=== PATIENT | male | born 1955 | race Caucasian/White ===

== ENCOUNTER 2018-06-24 16:45 | Inpatient (IN) | payer BC, SELFPAY ==
[2018-06-24 16:55] VITALS: BP 147/88; PULSE 54; RESP 18; TEMP 36; O2SAT 94
[2018-06-24 17:31] VITALS: BMI 42.2
[2018-06-24 17:40] VITALS: BMI 42.2
[2018-06-24] MEDS: Senna/Docusate Sodium 1 Tablet 2 TABLET PO (19:19)
--- NOTE | 2018-06-24 20:49 | PCM.HP.STD ---
Problem List (1) Lumbar spinal stenosis Status: Chronic (2) DVT (deep venous thrombosis) Status: Chronic (3) Hypertension Status: Chronic (4) Morbid obesity Status: Chronic (5) Obstructive sleep apnea Status: Chronic History of Present Illness Date of Admission: 06/24/18 Chief Complaint: Here for rehabilitation, strengthening, prior to discharge home with spouse. The patient is a 62 year old Male with below past medical history hospitalized for low back pain at [facility]. 06/19/2018 Patient underwent decompression L2 - S1 with Dr. Bernardo Andino. Post-operative course unremarkable. 06/24/2018 Admit to TCU with debility, here for rehabilitation, strengthening, prior to discharge home with spouse. Past Medical History Past Medical History (Chronic Problems): Chronic Problems Lumbar spinal stenosis (Chronic) DVT (deep venous thrombosis) (Chronic) Hypertension (Chronic) Morbid obesity (Chronic) Obstructive sleep apnea (Chronic) Allergies Penicillins Allergy (Verified 06/24/18 17:25) Swelling Home Medications: Ambulatory Orders Medication Instructions Recorded Cyclobenzaprine [Flexeril] 10 mg PO TID PRN PRN 06/24/18 Lisinopril [Zestril] 10 mg PO DAILY 06/24/18 Oxycodone HCl/Acetaminophen 1 - 2 tablet PO Q4H PRN PRN 06/24/18 [Percocet 5/325] Rivaroxaban [Xarelto] 20 mg PO DAILY 06/24/18 Surgical History: appendectomy - 1973., herniorrhaphy - Umbilical x 2., - - Back Surgery x 2, 2001; cochlear implant right x 2, Hammertoe left with implant, knee surgery left 2013; Nose surgery history, bilateral carpal tunnel surgery. Psychiatric History: No pertinent psych hx Lives: Spouse/ Significant Other Smoking Status: Never smoker Tobacco Use: Non-smoker Alcohol: None Drugs: None - *Family History Maternal History Items: Cancer - Breast, mets to bone. Paternal History Items: Cancer - Throat, Lung. Review of Systems Constitutional: Denies: Chills, Fever, Weight Change HEENT: Denies: Head Aches, Sinus Congestion, Sinus Drainage Cardiovascular: Denies: Chest Pain, Palpitations Respiratory: Denies: Cough, Shortness of breath at rest, Sputum production Gastrointestinal: Denies: Abdominal Pain, Nausea, Vomiting Genitourinary: Denies: Dysuria Musculoskeletal: Denies: Joint Pain, Joint Tenderness Skin: Denies: Rash, Wounds Neurological: Denies: Numbness, Tingling, Focal weakness Psychiatric: Denies: Anxiety, Depression, Homicidal Ideations, Suicidal Ideations Hematologic/ Lymphatic: Denies: Easy Bruising, Easy Bleeding VTE Information - Inpt Only VTE Present on Admission: No VTE Mechan Device Prophylaxis: Knee High IRIS Hose VTE Pharm Prophylaxis ordered?: No Reason prophylaxis not ordered:: Treatment Not Indicated - Physical Exam General: Alert, Oriented x3, Cooperative HEENT: Atraumatic, PERRLA, EOMI, Normocephalic Neck: Supple, No JVD, Negative Carotid Bruits Lungs: Clear to auscultation, Normal air movement Cardiovascular: Regular rate, No murmurs Abdomen: Bowel Sounds Present, Soft, Non Tender Extremities: No edema, Capillary Refill Less than 3 Seconds Skin: No rashes, No breakdown, Incision - Low back, clean, dry, sutures intact. Musculoskeletal: No Tenderness to Palpation of Joints or Extremities Neurological: Cranial nerves II-XII grossly intact Psych/Mental Status: Normal Affect, Appropriate Vital Signs Temp Pulse Resp BP Pulse Ox 96.8 F L 54 L 18 147/88 H 94 06/24/18 16:55 06/24/18 16:55 06/24/18 16:55 06/24/18 16:55 06/24/18 16:55 Oxygen Delivery Method Room Air Weight: 149.2 kg Body Mass Index (BMI) 42.2 Assessment/Plan 62 year old male with below past medical history hospitalized for decompression L2 - S1 06/19/[address] Bernardo Andino, admitted to TCU with debility, here for rehabilitation, strengthening, prior to discharge home with spouse. Debility - PT/OT. Pain - Tylenol 1000MG Q8H PRN mild pain, Oxycodone 10MG Q4H PRN severe pain. Bowel - Miralax 17GM daily, Senna/colace 2 tablets BID, Dulcolax 10MG PO daily PRN. Adult immunization - Flushot given, too young for Prevnar 13 and Pneumovax 23. DVT prophylaxis - Not necessary, already on Xarelto 20MG daily. Muscle spasm - Flexeril 10MG TID PRN. Hypertension - Lisinopril 10MG daily. Recurrent DVT - Xarelto 20MG daily.
--- NOTE | 2018-06-24 20:54 | HP.PCM_ITS ---
Problem List (1) Lumbar spinal stenosis Status: Chronic (2) DVT (deep venous thrombosis) Status: Chronic (3) Hypertension Status: Chronic (4) Morbid obesity Status: Chronic (5) Obstructive sleep apnea Status: Chronic History of Present Illness Date of Admission: 06/24/18 Chief Complaint: Here for rehabilitation, strengthening, prior to discharge home with spouse. The patient is a 62 year old Male with below past medical history hospitalized for low back pain at [facility]. 06/19/2018 Patient underwent decompression L2 - S1 with Dr. Bernardo Andino. Post- operative course unremarkable. 06/24/2018 Admit to TCU with debility, here for rehabilitation, strengthening, prior to discharge home with spouse. Past Medical History Past Medical History (Chronic Problems): Chronic Problems Lumbar spinal stenosis (Chronic) DVT (deep venous thrombosis) (Chronic) Hypertension (Chronic) Morbid obesity (Chronic) Obstructive sleep apnea (Chronic) Allergies Penicillins Allergy (Verified 06/24/18 17:25) Swelling Home Medications: Ambulatory Orders Medication Instructions Recorded Cyclobenzaprine [Flexeril] 10 mg PO TID PRN PRN 06/24/18 Lisinopril [Zestril] 10 mg PO DAILY 06/24/18 Oxycodone HCl/Acetaminophen 1 - 2 tablet PO Q4H PRN PRN 06/24/18 [Percocet 5/325] Rivaroxaban [Xarelto] 20 mg PO DAILY 06/24/18 Surgical History: appendectomy - 1973., herniorrhaphy - Umbilical x 2., - - Back Surgery x 2, 2001; cochlear implant right x 2, Hammertoe left with implant, knee surgery left 2013; Nose surgery history, bilateral carpal tunnel surgery. Psychiatric History: No pertinent psych hx Lives: Spouse/ Significant Other Smoking Status: Never smoker Tobacco Use: Non-smoker Alcohol: None Drugs: None - *Family History Maternal History Items: Cancer - Breast, mets to bone. Paternal History Items: Cancer - Throat, Lung. Review of Systems Constitutional: Denies: Chills, Fever, Weight Change HEENT: Denies: Head Aches, Sinus Congestion, Sinus Drainage Cardiovascular: Denies: Chest Pain, Palpitations Respiratory: Denies: Cough, Shortness of breath at rest, Sputum production Gastrointestinal: Denies: Abdominal Pain, Nausea, Vomiting Genitourinary: Denies: Dysuria Musculoskeletal: Denies: Joint Pain, Joint Tenderness Skin: Denies: Rash, Wounds Neurological: Denies: Numbness, Tingling, Focal weakness Psychiatric: Denies: Anxiety, Depression, Homicidal Ideations, Suicidal Ideations Hematologic/ Lymphatic: Denies: Easy Bruising, Easy Bleeding VTE Information - Inpt Only VTE Present on Admission: No VTE Mechan Device Prophylaxis: Knee High IRIS Hose VTE Pharm Prophylaxis ordered?: No Reason prophylaxis not ordered:: Treatment Not Indicated - Physical Exam General: Alert, Oriented x3, Cooperative HEENT: Atraumatic, PERRLA, EOMI, Normocephalic Neck: Supple, No JVD, Negative Carotid Bruits Lungs: Clear to auscultation, Normal air movement Cardiovascular: Regular rate, No murmurs Abdomen: Bowel Sounds Present, Soft, Non Tender Extremities: No edema, Capillary Refill Less than 3 Seconds Skin: No rashes, No breakdown, Incision - Low back, clean, dry, sutures intact. Musculoskeletal: No Tenderness to Palpation of Joints or Extremities Neurological: Cranial nerves II-XII grossly intact Psych/Mental Status: Normal Affect, Appropriate Vital Signs Temp Pulse Resp BP Pulse Ox 96.8 F L 54 L 18 147/88 H 94 06/24/18 16:55 06/24/18 16:55 06/24/18 16:55 06/24/18 16:55 06/24/18 16:55 Oxygen Delivery Method Room Air Weight: 149.2 kg Body Mass Index (BMI) 42.2 Assessment/Plan 62 year old male with below past medical history hospitalized for decompression L2 - S1 06/19/[address] Bernardo Andino, admitted to TCU with debility, here for rehabilitation, strengthening, prior to discharge home with spouse. * Debility - PT/OT. * Pain - Tylenol 1000MG Q8H PRN mild pain, Oxycodone 10MG Q4H PRN severe pain. * Bowel - Miralax 17GM daily, Senna/colace 2 tablets BID, Dulcolax 10MG PO daily PRN. * Adult immunization - Flushot given, too young for Prevnar 13 and Pneumovax 23. * DVT prophylaxis - Not necessary, already on Xarelto 20MG daily. * Muscle spasm - Flexeril 10MG TID PRN. * Hypertension - Lisinopril 10MG daily. * Recurrent DVT - Xarelto 20MG daily.
[2018-06-25] MEDS: Senna/Docusate Sodium 1 Tablet 2 TABLET PO ×2 (05:42→18:00)
[2018-06-25] MEDS: Lisinopril 10 MG Tablet PO (05:42)
[2018-06-25] MEDS: Polyethylene Glycol 3350 17 GM PACKET PO (05:42)
[2018-06-25 05:43] LABS: Absolute Neutrophil Count 5.1 X10^3/uL (2.0-7.7); Basophil# 0.04 X10^3/uL; Basophil% 0.5 % (0-1); Eosinophil# 0.34 X10^3/uL; Eosinophils% 4.1 % (0-5); Hematocrit 34.4 % (40-54); Hemoglobin 11.5 g/dl (13.0-16.5); Lymphocyte % 18.2 % (19-41); Mean Corp Hgb Conc 33.4 g/gl (32-36); Mean Corpuscular Hgb 28.6 pg (27.0-32.0); Mean Corpuscular Volume 85.6 fL (80-94); Mean Platelet Vol. 11.2 fl (6.2-12.0); Monocyte# 1.17 X10^3/uL; Monocyte% 14.2 % (0-10); Neutrophil # 5.09 X10^3/uL (2.7-7.7); Neutrophil % 61.5 % (47-70); Platelet Count 195 K/mm3 (150-450); RBC Distribution Width CV 14.2 % (11.6-14.6); RBC Distribution Width SD 43.6 fl (35.1-43.9); Red Blood Count 4.02 M/mm3 (4.6-6.2); White Blood Count 8.3 K/mm3 (4.4-11.0)
[2018-06-25 05:46] LABS: POSITIVE COUNT NO; POSITIVE DIFFERENTIAL NO; POSITIVE MORPHOLOGY NO
[2018-06-25 06:05] LABS: Anion Gap 6 (5-15); BUN 21 mg/dL (7-18); BUN/Creat Ratio 19.3 RATIO (10-20); Calcium,Total 9.2 mg/dL (8.5-10.1); Chloride 103 mmol/L (98-107); Creatinine, Serum 1.09 mg/dL (0.70-1.30); EST Glomerular Filtration Rate 73 mL/min (>60); Est Glom Filt Rate - Afr Amer 88 mL/min (>60); Glucose 156 mg/dL (74-106); Potassium 4.6 mmol/L (3.5-5.1); Sodium Level 137 mmol/L (136-145)
[2018-06-25] MEDS: oxyCODONE 5 MG Tablet 10 MG PO ×2 (09:34→15:34)
[2018-06-25] MEDS: Tuberculin,Purif.prot.deriv. 50 TU/ML Vial 5 ML ID (12:07)
--- NOTE | 2018-06-25 12:51 | PCM.PN.RX ---
<Sriram Crews D - Last Filed: 06/25/18 12:51> Progress Note - Pharmacy Subjective: TCU Admission Objective: Allergies Penicillins Allergy (Verified 06/24/18 17:25) Swelling Current Medications Generic Name Dose Route Start Last Admin Trade Name Freq PRN Reason Stop Dose Admin Acetaminophen 1,000 mg 06/24/18 21:05 Tylenol PO Q8H PRN PRN MILD PAIN (1-3/10) Bisacodyl 10 mg 06/24/18 21:05 Dulcolax PO DAILY PRN Constipation Cyclobenzaprine HCl 10 mg 06/24/18 17:13 Flexeril PO TID PRN PRN MUSCLE SPASM Influenza Virus Vaccine Quadrival 0.5 ml 06/30/18 10:00 Fluarix/Fluzone IM 06/30/18 10:01 .ONCE ONE Lisinopril 10 mg 06/25/18 06:00 06/25/18 05:42 Zestril PO 10 mg DAILY JEAN Administration Oxycodone HCl 10 mg 06/24/18 21:06 06/25/18 09:34 Oxyir PO 5 mg Q4H PRN PRN Administration SEVERE PAIN (6-10/10) Polyethylene Glycol 17 gm 06/25/18 06:00 06/25/18 05:42 Miralax PO 17 gm DAILY [facility] Administration Rivaroxaban 20 mg 07/02/18 17:00 Xarelto PO DAILY@1700 [facility] Senna/Docusate Sodium 2 tablet 06/24/18 19:00 06/25/18 05:42 Senokot-S, Katelyn-Colace PO 2 tablet BID [facility] Administration Tuberculin PPD 5 tu 07/02/18 10:00 Tubersol, Aplisol, Ppd ID 07/02/18 10:01 X1 ONE Problem List Lumbar spinal stenosis (Chronic) DVT (deep venous thrombosis) (Chronic) Hypertension (Chronic) Morbid obesity (Chronic) Obstructive sleep apnea (Chronic) Vital Signs Temp Pulse Resp BP Pulse Ox 96.8 F L 54 L 18 147/88 H 94 06/24/18 16:55 06/24/18 16:55 06/24/18 16:55 06/24/18 16:55 06/24/18 16:55 Oxygen Delivery Method Room Air Weight: 149.2 kg Body Mass Index (BMI) 42.2 Sodium 137 mmol/L (136-145) 06/25/18 05:20 Potassium 4.6 mmol/L (3.5-5.1) 06/25/18 05:20 Chloride 103 mmol/L (98-107) 06/25/18 05:20 Carbon Dioxide 28.0 mmol/L (21.0-32.0) 06/25/18 05:20 Anion Gap 6 (5-15) 06/25/18 05:20 BUN 21 mg/dL (7-18) H 06/25/18 05:20 Creatinine 1.09 mg/dL (0.70-1.30) 06/25/18 05:20 Est GFR (MDRD) Af Amer 88 mL/min (>60) 06/25/18 05:20 Est GFR (MDRD) Non-Af 73 mL/min (>60) 06/25/18 05:20 BUN/Creatinine Ratio 19.3 RATIO (10-20) 06/25/18 05:20 Glucose 156 mg/dL (74-106) H 06/25/18 05:20 Assessment/Plan: 1) Pain APAP for mild pain, oxycodone for severe pain, cyclobenzaprine for spasm. Continue to monitor prn medication use, daily pain scores. 2) HTN Lisinopril daily. Continue to monitor BP/HR, renal function, electrolytes. 3) DVT Rivaroxaban daily. Continue to monitor s/s bleeding/clot, renal function. Psychotropic Medications: None Unnecessary Medications: None Bowel Regimen: 4) Senna/s, PEG, prn bisacodyl. Continue to monitor prn medication use, for constipation/diarrhea. Date of Note:: 06/25/18 - Provider Comments Provider responsibility: Provider responsible to enter orders to implement recommendations <Gene Corona Chi - Last Filed: 06/25/18 17:39> Progress Note - Pharmacy Subjective: [] Objective: Allergies Penicillins Allergy (Verified 06/24/18 17:25) Swelling Current Medications Generic Name Dose Route Start Last Admin Trade Name Freq PRN Reason Stop Dose Admin Acetaminophen 1,000 mg 06/24/18 21:05 Tylenol PO Q8H PRN PRN MILD PAIN (1-3/10) Bisacodyl 10 mg 06/24/18 21:05 Dulcolax PO DAILY PRN Constipation Cyclobenzaprine HCl 10 mg 06/24/18 17:13 Flexeril PO TID PRN PRN MUSCLE SPASM Influenza Virus Vaccine Quadrival 0.5 ml 06/30/18 10:00 Fluarix/Fluzone IM 06/30/18 10:01 .ONCE ONE Lisinopril 10 mg 06/25/18 06:00 06/25/18 05:42 Zestril PO 10 mg DAILY JE[facility] Administration Oxycodone HCl 5 - 10 mg 06/25/18 15:39 Oxyir PO Q4H PRN PRN SEVERE PAIN (6-07/01) Polyethylene Glycol 17 gm 06/25/18 06:00 06/25/18 05:42 Miralax PO 17 gm DAILY [facility] Administration Rivaroxaban 20 mg 07/02/18 17:00 Xarelto PO DAILY@1700 [facility] Senna/Docusate Sodium 2 tablet 06/24/18 19:00 06/25/18 05:42 Senokot-S, Katelyn-Colace PO 2 tablet BID JEAN Administration Tuberculin PPD 5 tu 07/02/18 10:00 Tubersol, Aplisol, Ppd ID 07/02/18 10:01 X1 ONE Problem List Lumbar spinal stenosis (Chronic) DVT (deep venous thrombosis) (Chronic) Hypertension (Chronic) Morbid obesity (Chronic) Obstructive sleep apnea (Chronic) Vital Signs Temp Pulse Resp BP Pulse Ox 98.4 F 85 20 H 131/71 H 98 06/25/18 16:00 06/25/18 16:00 06/25/18 16:00 06/25/18 16:00 06/25/18 16:00 Oxygen Delivery Method Room Air Weight: 149.2 kg Body Mass Index (BMI) 42.2 Sodium 137 mmol/L (136-145) 06/25/18 05:20 Potassium 4.6 mmol/L (3.5-5.1) 06/25/18 05:20 Chloride 103 mmol/L (98-107) 06/25/18 05:20 Carbon Dioxide 28.0 mmol/L (21.0-32.0) 06/25/18 05:20 Anion Gap 6 (5-15) 06/25/18 05:20 BUN 21 mg/dL (7-18) H 06/25/18 05:20 Creatinine 1.09 mg/dL (0.70-1.30) 06/25/18 05:20 Est GFR (MDRD) Af Amer 88 mL/min (>60) 06/25/18 05:20 Est GFR (MDRD) Non-Af 73 mL/min (>60) 06/25/18 05:20 BUN/Creatinine Ratio 19.3 RATIO (10-20) 06/25/18 05:20 Glucose 156 mg/dL (74-106) H 06/25/18 05:20 Assessment/Plan: Psychotropic Medications: Unnecessary Medications: Bowel Regimen: - Provider Comments Provider responsibility: Provider responsible to enter orders to implement recommendations Provider Comments to Recommendations by Pharmacy: Agree
--- NOTE | 2018-06-25 12:54 | PHA.CONS_ITS ---
<Sriram Crews D - Last Filed: 06/25/18 12:51> Progress Note - Pharmacy Subjective: TCU Admission Objective: Allergies Penicillins Allergy (Verified 06/24/18 17:25) Swelling Current Medications Generic Name Dose Route Start Last Admin Trade Name Freq PRN Reason Stop Dose Admin Acetaminophen 1,000 mg 06/24/18 21:05 Tylenol PO Q8H PRN PRN MILD PAIN (1-3/10) Bisacodyl 10 mg 06/24/18 21:05 Dulcolax PO DAILY PRN Constipation Cyclobenzaprine HCl 10 mg 06/24/18 17:13 Flexeril PO TID PRN PRN MUSCLE SPASM Influenza Virus Vaccine Quadrival 0.5 ml 06/30/18 10:00 Fluarix/Fluzone IM 06/30/18 10:01 .ONCE ONE Lisinopril 10 mg 06/25/18 06:00 06/25/18 05:42 Zestril PO 10 mg DAILY [facility] Administration Oxycodone HCl 10 mg 06/24/18 21:06 06/25/18 09:34 Oxyir PO 5 mg Q4H PRN PRN Administration SEVERE PAIN (6-10/10) Polyethylene Glycol 17 gm 06/25/18 06:00 06/25/18 05:42 Miralax PO 17 gm DAILY [facility] Administration Rivaroxaban 20 mg 07/02/18 17:00 Xarelto PO DAILY@1700 [facility] Senna/Docusate Sodium 2 tablet 06/24/18 19:00 06/25/18 05:42 Senokot-S, Katelyn-Colace PO 2 tablet BID [facility] Administration Tuberculin PPD 5 tu 07/02/18 10:00 Tubersol, Aplisol, Ppd ID 07/02/18 10:01 X1 ONE Problem List Lumbar spinal stenosis (Chronic) DVT (deep venous thrombosis) (Chronic) Hypertension (Chronic) Morbid obesity (Chronic) Obstructive sleep apnea (Chronic) Vital Signs Temp Pulse Resp BP Pulse Ox 96.8 F L 54 L 18 147/88 H 94 06/24/18 16:55 06/24/18 16:55 06/24/18 16:55 06/24/18 16:55 06/24/18 16:55 Oxygen Delivery Method Room Air Weight: 149.2 kg Body Mass Index (BMI) 42.2 Sodium 137 mmol/L (136-145) 06/25/18 05:20 Potassium 4.6 mmol/L (3.5-5.1) 06/25/18 05:20 Chloride 103 mmol/L (98-107) 06/25/18 05:20 Carbon Dioxide 28.0 mmol/L (21.0-32.0) 06/25/18 05:20 Anion Gap 6 (5-15) 06/25/18 05:20 BUN 21 mg/dL (7-18) H 06/25/18 05:20 Creatinine 1.09 mg/dL (0.70-1.30) 06/25/18 05:20 Est GFR (MDRD) Af Amer 88 mL/min (>60) 06/25/18 05:20 Est GFR (MDRD) Non-Af 73 mL/min (>60) 06/25/18 05:20 BUN/Creatinine Ratio 19.3 RATIO (10-20) 06/25/18 05:20 Glucose 156 mg/dL (74-106) H 06/25/18 05:20 Assessment/Plan: 1) Pain APAP for mild pain, oxycodone for severe pain, cyclobenzaprine for spasm. Continue to monitor prn medication use, daily pain scores. 2) HTN Lisinopril daily. Continue to monitor BP/HR, renal function, electrolytes. 3) DVT Rivaroxaban daily. Continue to monitor s/s bleeding/clot, renal function. Psychotropic Medications: None Unnecessary Medications: None Bowel Regimen: 4) Senna/s, PEG, prn bisacodyl. Continue to monitor prn medication use, for con stipation/diarrhea. Date of Note:: 06/25/18 - Provider Comments Provider responsibility: Provider responsible to enter orders to implement recommendations <Gene Corona Chi - Last Filed: 06/25/18 17:39> Progress Note - Pharmacy Subjective: [] Objective: Allergies Penicillins Allergy (Verified 06/24/18 17:25) Swelling Current Medications Generic Name Dose Route Start Last Admin Trade Name Freq PRN Reason Stop Dose Admin Acetaminophen 1,000 mg 06/24/18 21:05 Tylenol PO Q8H PRN PRN MILD PAIN (1-3/10) Bisacodyl 10 mg 06/24/18 21:05 Dulcolax PO DAILY PRN Constipation Cyclobenzaprine HCl 10 mg 06/24/18 17:13 Flexeril PO TID PRN PRN MUSCLE SPASM Influenza Virus Vaccine Quadrival 0.5 ml 06/30/18 10:00 Fluarix/Fluzone IM 06/30/18 10:01 .ONCE ONE Lisinopril 10 mg 06/25/18 06:00 06/25/18 05:42 Zestril PO 10 mg DAILY [facility] Administration Oxycodone HCl 5 - 10 mg 06/25/18 15:39 Oxyir PO Q4H PRN PRN SEVERE PAIN (6-07/01) Polyethylene Glycol 17 gm 06/25/18 06:00 06/25/18 05:42 Miralax PO 17 gm DAILY [facility] Administration Rivaroxaban 20 mg 07/02/18 17:00 Xarelto PO DAILY@1700 [facility] Senna/Docusate Sodium 2 tablet 06/24/18 19:00 06/25/18 05:42 Senokot-S, Katelyn-Colace PO 2 tablet BID [facility] Administration Tuberculin PPD 5 tu 07/02/18 10:00 Tubersol, Aplisol, Ppd ID 07/02/18 10:01 X1 ONE Problem List Lumbar spinal stenosis (Chronic) DVT (deep venous thrombosis) (Chronic) Hypertension (Chronic) Morbid obesity (Chronic) Obstructive sleep apnea (Chronic) Vital Signs Temp Pulse Resp BP Pulse Ox 98.4 F 85 20 H 131/71 H 98 06/25/18 16:00 06/25/18 16:00 06/25/18 16:00 06/25/18 16:00 06/25/18 16:00 Oxygen Delivery Method Room Air Weight: 149.2 kg Body Mass Index (BMI) 42.2 Sodium 137 mmol/L (136-145) 06/25/18 05:20 Potassium 4.6 mmol/L (3.5-5.1) 06/25/18 05:20 Chloride 103 mmol/L (98-107) 06/25/18 05:20 Carbon Dioxide 28.0 mmol/L (21.0-32.0) 06/25/18 05:20 Anion Gap 6 (5-15) 06/25/18 05:20 BUN 21 mg/dL (7-18) H 06/25/18 05:20 Creatinine 1.09 mg/dL (0.70-1.30) 06/25/18 05:20 Est GFR (MDRD) Af Amer 88 mL/min (>60) 06/25/18 05:20 Est GFR (MDRD) Non-Af 73 mL/min (>60) 06/25/18 05:20 BUN/Creatinine Ratio 19.3 RATIO (10-20) 06/25/18 05:20 Glucose 156 mg/dL (74-106) H 06/25/18 05:20 Assessment/Plan: Psychotropic Medications: Unnecessary Medications: Bowel Regimen: - Provider Comments Provider responsibility: Provider responsible to enter orders to implement recommendations Provider Comments to Recommendations by Pharmacy: Agree
--- NOTE | 2018-06-25 14:12 | CASEMGMT ---
Reviewed and approved social media content manager student admission assessment. Janelle LOPEZ, VEST MAKER
[2018-06-25 16:00] VITALS: BP 131/71; PULSE 85; RESP 20; TEMP 36.9; O2SAT 98
[2018-06-25] MEDS: oxyCODONE 5 MG Tablet PO (20:14)
[2018-06-26] MEDS: Acetaminophen 500 MG Tablet 1000 MG PO ×2 (05:31→17:01)
[2018-06-26] MEDS: Lisinopril 10 MG Tablet PO (05:31)
[2018-06-26] MEDS: Senna/Docusate Sodium 1 Tablet 2 TABLET PO ×2 (05:31→17:05)
[2018-06-26] MEDS: Polyethylene Glycol 3350 17 GM PACKET PO (05:31)
--- NOTE | 2018-06-26 11:47 | CASEMGMT ---
Insurance Clinical update faxed to [employer]. Auth # [id number] JOHN De Leon
--- NOTE | 2018-06-26 12:23 | CHAPLAIN ---
Type of Pastoral Visit _x__ Initial Visit ___ Follow-up Visit ___ On-call Visit ___ General Patient Visit ___ Spiritual Assessment ___ Family Conference ___ Bereavement ___ Rapid Response ___ Code Blue ___ Other (describe below) Pastoral Care Referral From _x__ Patient ___ Family ___ Nurse ___ Physician ___ Cloth Measurer ___ Caseworker ___ Other (describe below) Sacrament/Intervention _x__ Active listening ___ Anointing ___ Zoroastrian ___ Bereavement ___ Communion _x__ Yaa exploration ___ _x__ Life review _x__ Prayer ___ Reconciliation ___ Sacrament of Sick ___ Supportive presence ___ Wedding ___ Other (describe below) Pastoral Comments patient is very welcoming and talkative; pt said he was expecting and looking forward to pedodontist visit; pt is spiritual but not samaritan; pt speaks of his desire for prayer and support for another patient and family in the TCU that he met; pt admits to having moments of depression but finds that family and keeping focus on others is helpful; pt has been limited in 2018 from doing much and is holding on to hope that his situation will improve; prayer receives a prayer and adds a prayer himself
--- NOTE | 2018-06-26 15:13 | CASEMGMT ---
Insurance Continued stay approved through 07/01/18. Auth # [id number] JOHN De Leon
[2018-06-26 15:54] VITALS: BP 143/77; PULSE 80; RESP 14; TEMP 36.8; O2SAT 98
[2018-06-26] MEDS: Bisacodyl 5 MG Tablet 10 MG PO (17:04)
[2018-06-26 21:50] VITALS: PULSE 80; O2SAT 95
[2018-06-27] MEDS: Lisinopril 10 MG Tablet PO (04:59)
[2018-06-27] MEDS: Polyethylene Glycol 3350 17 GM PACKET PO (04:59)
[2018-06-27] MEDS: Senna/Docusate Sodium 1 Tablet 2 TABLET PO ×2 (04:59→17:30)
[2018-06-27 15:49] VITALS: BP 146/73; PULSE 85; RESP 14; TEMP 36.8; O2SAT 97
[2018-06-28] MEDS: Senna/Docusate Sodium 1 Tablet 2 TABLET PO ×2 (05:58→17:49)
[2018-06-28] MEDS: Lisinopril 10 MG Tablet PO (05:58)
[2018-06-28] MEDS: Polyethylene Glycol 3350 17 GM PACKET PO (05:58)
[2018-06-28 05:59] VITALS: BP 137/79; PULSE 79
[2018-06-28] MEDS: Acetaminophen 500 MG Tablet 1000 MG PO ×2 (09:55→19:42)
[2018-06-28 15:44] VITALS: BP 127/75; PULSE 61; RESP 18; TEMP 36.8; O2SAT 96
[2018-06-29] MEDS: Polyethylene Glycol 3350 17 GM PACKET PO (06:22)
[2018-06-29] MEDS: Lisinopril 10 MG Tablet PO (06:22)
[2018-06-29] MEDS: Senna/Docusate Sodium 1 Tablet 2 TABLET PO (06:22)
[2018-06-29] MEDS: Acetaminophen 500 MG Tablet 1000 MG PO ×2 (09:28→19:50)
--- NOTE | 2018-06-29 13:15 | NURSING ---
Addendum entered by Sabina Monae 06/29/18 13:15: Message left and they will return the call. Original Note: Call made to Dr Andino's office about clarification for F/U appt and also suture removal.
--- NOTE | 2018-06-29 14:12 | NURSING ---
KIZZY RIVERO CNP AT DR MURGUIA'S OFFICE CALLED TO CLARIFY F/U APPT AND SUTURE REMOVAL. SENIOR JAVASCRIPT ENGINEER STATES IS OK TO REMOVE SUTURES TODAY D/T BEING 10DAYS S/P SURGERY LONG INCISION IS WELL APPROX W/NO REDNESS,EDEMA ECT.. SENIOR JAVASCRIPT ENGINEER STATES SHE WILL CONTACT PT FAMILY TO SET UP F/U APPT AND INSTRUCT FAMILY TO LET TCU KNOW WHEN APPT IS SCHED FOR. PT NOTIFIED OF THESE PLANS AND IS AGREEABLE TO HAVING SUTURES REMOVED HERE AND F/U SCHED W/HIS FAMILY MEMBER. PT STATES HE'S CONSIDERING LEAVING WED D/T PROGRESS MADE.
--- NOTE | 2018-06-29 14:56 | CASEMGMT ---
Brief interview for mental status (BIMS) and resident mood interview (PHQ-9) completed on this day. BIMS score 14/15. PHQ-9 score 10/18
[2018-06-29 15:30] VITALS: BP 142/84; PULSE 92; RESP 18; TEMP 36.6; O2SAT 95
[2018-06-30] MEDS: Polyethylene Glycol 3350 17 GM PACKET PO (05:52)
[2018-06-30] MEDS: Lisinopril 10 MG Tablet PO (05:53)
[2018-06-30] MEDS: Senna/Docusate Sodium 1 Tablet 2 TABLET PO ×2 (05:53→16:31)
--- NOTE | 2018-06-30 14:55 | CASEMGMT ---
Social Work Spoke with resident in room. Resident requesting for discharge date to be set for 07/02/18. Spoke with staff/therapy, 07/02/18 is an agreeable date at this time. Resident plans to discharge to home with spouse. Resident voicing to have all needed durable medical equipment needs already setup within the home at this time. Resident spouse to provide transportation home for resident at time of discharge. Resident reporting to be able to notify spouse in regards to discharge date and plan. No further therapy recommendations at this time. Support given. Proposed discharge date: 07/02/18 PLAN: Discharge to home with spouse. Janelle LOPEZ, QA AUTOMATION DEVELOPER
[2018-06-30 16:00] VITALS: BP 153/73; PULSE 95; RESP 20; TEMP 36.8; O2SAT 97
--- NOTE | 2018-06-30 16:35 | CHAPLAIN ---
Type of Pastoral Visit ___ Initial Visit _x__ Follow-up Visit ___ On-call Visit ___ General Patient Visit ___ Spiritual Assessment ___ Family Conference ___ Bereavement ___ Rapid Response ___ Code Blue ___ Other (describe below) Pastoral Care Referral From _x__ Patient ___ Family ___ Nurse ___ Physician ___ Ampoule Filler ___ Veterinary Physiologist ___ Other (describe below) Sacrament/Intervention _x__ Active listening ___ Anointing ___ Zoroastrianism ___ Bereavement ___ Communion ___ Yaa exploration ___ ___ Life review ___ Prayer ___ Reconciliation ___ Sacrament of Sick ___ Supportive presence ___ Wedding ___ Other (describe below) Pastoral Comments
--- NOTE | 2018-06-30 20:19 | DCINST_ITS ---
- Discharge Diagnoses Current Active Problems: Current Active and Chronic Problems Lumbar spinal stenosis (Chronic) DVT (deep venous thrombosis) (Chronic) Hypertension (Chronic) Morbid obesity (Chronic) Obstructive sleep apnea (Chronic) You will use the following diet at home:: No restrictions, Regular Your food should be the consistency of: Regular Your liquids should be the consistency of: Regular/Thin Discharge Activity: Return to Normal Activity, May Shower, Use Walker Weight Bearing Status: Weight bearing as tolerated Call your doctor if you observe: Fever of 101 or Higher, Inability to urinate, Inability to have a bowel movement, Shortness of breath, Chest pain, Uncontrolled pain Allergies/Adverse Reactions: Allergies Penicillins Allergy (Verified 06/24/18 17:25) Swelling Medications to take at Discharge Lisinopril [Zestril] 10 mg PO DAILY 06/24/18 Rivaroxaban [Xarelto] 20 mg PO DAILY 06/24/18 Acetaminophen [Tylenol] 1,000 mg PO Q8H PRN PRN tablet 06/30/18 Cyclobenzaprine [Flexeril] 10 mg PO TID PRN PRN #90 tablet 06/30/18 The following prescriptions were given: Cyclobenzaprine [Flexeril] 10 mg PO TID PRN PRN #90 tablet PRN Reason: Muscle Spasm Primary Care Physician: Héctor Cunha MD [Primary Care Provider] - Please follow up with your Primary Care Physician in: 1 week. Test Results: Test results from this visit will be discussed in further detail at your follow- up appointment, if applicable. Proposed Discharge Date: 07/02/18
--- NOTE | 2018-06-30 20:20 | PCM.DC.SUM ---
Discharge Date and Diagnosis Date of Admission: 06/24/18 Date of Discharge: 07/02/18 - Secondary Discharge Diagnosis Chronic Problems Lumbar spinal stenosis (Chronic) DVT (deep venous thrombosis) (Chronic) Hypertension (Chronic) Morbid obesity (Chronic) Obstructive sleep apnea (Chronic) Hospital Course and Treatment Imaging Results: 06/24/18 17:15 Diet: Regular Diet Operations: None Procedures: None Summary of Care Provided: The patient is a 62 year old Male with below past medical history hospitalized for decompression L2 - S1 06/19/[address] Bernardo Andino, admitted to TCU with debility, here for rehabilitation, strengthening, prior to discharge home with spouse. Discharge home with spouse. - Physical Exam Vital Signs Temp Pulse Resp BP Pulse Ox 98.2 F 95 20 H 153/73 H 97 06/30/18 16:00 06/30/18 16:00 06/30/18 16:00 06/30/18 16:00 06/30/18 16:00 Oxygen Delivery Method Room Air Weight: 147.616 kg Body Mass Index (BMI) 42.2 Intake and Output for Last 24 Hours 06/28/18 06/29/18 06/30/18 23:59 23:59 23:59 Intake Total 1800 / 1800 1560 / 1560 1700 / 1700 Output Total 1000 / 1000 500 / 500 Balance 800 / 800 1560 / 1560 1200 / 1200 Discharge Diet: No Restrictions Discharge Activity: Return to Normal Activity, May Shower, Use Walker Weight Bearing Status: Weight bearing as tolerated Call your doctor if you observe: Fever of 101 or Higher, Inability to urinate, Inability to have a bowel movement, Shortness of breath, Chest pain, Uncontrolled pain Home Medications: Medications to take at Discharge Lisinopril [Zestril] 10 mg PO DAILY 06/24/18 Rivaroxaban [Xarelto] 20 mg PO DAILY 06/24/18 Acetaminophen [Tylenol] 1,000 mg PO Q8H PRN PRN tablet 06/30/18 Cyclobenzaprine [Flexeril] 10 mg PO TID PRN PRN #90 tablet 06/30/18 Following Prescrptions Were Given to Patient: Cyclobenzaprine [Flexeril] 10 mg PO TID PRN PRN #90 tablet PRN Reason: Muscle Spasm Primary Care Physician: Héctor Cunha MD [Primary Care Provider] - Please follow up with your Primary Care Physician in: 1 week. Disposition: Home Minutes spent on discharge:: 30 Patient Condition:: Stable Medical Necessity - Tobacco Use Smoking Status: Never smoker Tobacco Use: Non-smoker Meaningful Use Info Meaningful Use Diagnoses (Choose all that apply): None applicable
[2018-06-30] MEDS: Acetaminophen 500 MG Tablet 1000 MG PO (20:33)
[2018-07-01] MEDS: Lisinopril 10 MG Tablet PO (05:18)
[2018-07-01 06:21] VITALS: PULSE 77; O2SAT 99
--- NOTE | 2018-07-01 09:23 | CASEMGMT ---
Addendum entered by Janelle Lucio 07/01/18 10:09: Correction, resident reporting to need a walker at time of discharge. Resident does not have a preference of durable medical equipment company, [employer] to be utilized. Will fax order to [employer] when obtained. Original Note: Plan of care meeting held. Resident present as well as resident spouse. Resident to discharge to home with spouse on 07/02/18. No further therapy recommendations at this time. Resident to follow up with surgeon on therapy recommendations. Resident reporting to have all needed durable medical equipment already set up within the home. Support given. Proposed discharge date: 07/02/18 PLAN: Discharge to home with spouse. Janelle LOPEZ, EDITOR IN CHIEF NEWSPAPER
--- NOTE | 2018-07-01 11:19 | CASEMGMT ---
Social Work Order faxed for front wheeled walker to [facility] [place]. [facility] [place] to have walker delivered to resident room prior to resident discharge. Proposed discharge date: 07/02/18. PLAN: Discharge to home with spouse. Janelle LOPEZ, FOUNTAIN HELPER
[2018-07-01] MEDS: Acetaminophen 500 MG Tablet 1000 MG PO (14:02)
--- NOTE | 2018-07-01 14:18 | VDLE_ITS ---
Reason For Study: Pain RIGHT LEFT GSV is normal. CFV is compressible, spontaneous, phasic, CFV is compressible, spontaneous, phasic, competent, and demonstrates normal competent and demonstrates normal augmentation. augmentation. FV is compressible, spontaneous, phasic, competent and demonstrates normal augmentation. POP V is compressible, spontaneous, phasic, competent and demonstrates normal augmentation. T/P Trunk is partially compressible and dilated. Consistent with acute DVT. Acute deep vein thrombosis is noted in the right peroneal vein. Acute deep vein thrombosis is noted in the right posterior tibial vein. Procedure Exam performed in department. A preliminary report was called and/or faxed to TCU. Interpretation Summary Acute deep vein thrombosis is noted in the right tibio-peroneal trunk. Acute deep vein thrombosis is noted in the right peroneal vein. Acute deep vein thrombosis is noted in the right posterior tibial vein. The more proximal portion of the right lower extremity deep venous system is patent, compressible, and competent. The right greater saphenous vein appears patent and compressible segmentally. Ordering Physician: Gene Corona Referring Physician: Héctor Cunha M.D. Performed By: Domingo PINEDA, Angelica LOTT and Student
[2018-07-01] MEDS: Rivaroxaban 20 MG Tablet PO (14:20)
[2018-07-01 16:00] VITALS: BP 132/64; PULSE 73; RESP 20; TEMP 36.9; O2SAT 94
[2018-07-02] MEDS: Lisinopril 10 MG Tablet PO (05:12)
[2018-07-02] MEDS: Senna/Docusate Sodium 1 Tablet 2 TABLET PO (05:13)
[2018-07-02] MEDS: Rivaroxaban 20 MG Tablet PO (05:13)
[2018-07-02 05:54] LABS: Absolute Lymphocyte Count 1.85 X10^3/ul (0.83-4.51); Absolute Neutrophil Count 5.5 X10^3/uL (2.0-7.7); Basophil# 0.05 X10^3/uL; Basophil% 0.6 % (0-1); Eosinophil# 0.32 X10^3/uL; Eosinophils% 3.7 % (0-5); Hematocrit 35.1 % (40-54); Hemoglobin 11.8 g/dl (13.0-16.5); Lymphocyte # 1.85 X10^3/ul (4.0); Lymphocyte % 21.3 % (19-41); Mean Corp Hgb Conc 33.6 g/gl (32-36); Mean Corpuscular Hgb 28.6 pg (27.0-32.0); Mean Platelet Vol. 10.9 fl (6.2-12.0); Monocyte# 0.94 X10^3/uL; Monocyte% 10.8 % (0-10); Neutrophil # 5.47 X10^3/uL (2.7-7.7); Neutrophil % 62.8 % (47-70); Platelet Count 219 K/mm3 (150-450); RBC Distribution Width CV 13.7 % (11.6-14.6); RBC Distribution Width SD 41.9 fl (35.1-43.9); Red Blood Count 4.13 M/mm3 (4.6-6.2); White Blood Count 8.7 K/mm3 (4.4-11.0)
[2018-07-02 05:56] LABS: POSITIVE COUNT NO; POSITIVE DIFFERENTIAL NO; POSITIVE MORPHOLOGY NO
[2018-07-02 06:12] LABS: Anion Gap 7 (5-15); BUN 20 mg/dL (7-18); BUN/Creat Ratio 15.9 RATIO (10-20); Calcium,Total 9.2 mg/dL (8.5-10.1); Chloride 103 mmol/L (98-107); Creatinine, Serum 1.26 mg/dL (0.70-1.30); EST Glomerular Filtration Rate 62 mL/min (>60); Est Glom Filt Rate - Afr Amer 74 mL/min (>60); Estimated Creatinine Clearance 70.67 ml/min; Glucose 159 mg/dL (74-106); Potassium 4.5 mmol/L (3.5-5.1); Sodium Level 137 mmol/L (136-145)
[2018-07-02 13:21] VITALS: BP 121/71; PULSE 98; RESP 18; TEMP 37.2; O2SAT 97
--- NOTE | 2018-07-02 14:25 | CASEMGMT ---
Insurance Notified insurance of resident discharge on 07/02/18. Auth#[id number] Janelle LOPEZ, PRESS PULLER
--- NOTE | 2018-07-07 09:44 | MDS.RN ---
Information for the mds was obtained from review of the clinical record, interview of resident, staff, and direct observation of resident's care.
== END 2018-07-02 13:30 | disposition home or self-care (01) | DRG 560 ==
PROVIDERS: Admitting Provider Family Medicine Geriatric Medicine; Family Provider Family Medicine; PCP Family Medicine; Referring Provider Family Medicine Geriatric Medicine; Visit Provider Family Medicine Geriatric Medicine
DX: Z47.89 Encounter for other orthopedic aftercare (principal); Z68.41 Body mass index [BMI] 40.0-44.9, adult; I82.401 Acute embolism and thrombosis of unspecified deep veins of right lower extremity; G47.33 Obstructive sleep apnea (adult) (pediatric); E66.01 Morbid (severe) obesity due to excess calories; Z71.3 Dietary counseling and surveillance; I10 Essential (primary) hypertension; M48.061 Spinal stenosis, lumbar region without neurogenic claudication
CPT/HCPCS: 36415; 80048; 85025; 93971; 97110; 97116; 97163; 97166; 97530; 97535; 97802; 90686